=== PATIENT | male | born 1985 | race Caucasian/White ===

== ENCOUNTER 2022-12-23 04:10 | Emergency (ER) | payer BC, OTHER ==
[~2022-12-23] VITALS: Ht 177.8 cm; Wt 109.8 kg
[2022-12-23 04:20] VITALS: BP 147/80
--- NOTE | 2022-12-23 04:21 | NUR ---
To bed 11.
--- NOTE | 2022-12-23 04:25 | NUR ---
Patient BIB by family from home. C/O right foot pain x 2 days. Patient reported, heavy object dropped right foot on Wednesday, Hx Fx right foot.
--- NOTE | 2022-12-23 04:27 | NUR ---
Dr. Aguilar examining patient.
--- NOTE | 2022-12-23 04:31 | NUR ---
X-Ray at bedside.
--- NOTE | 2022-12-23 04:55 | NUR ---
Patient taken to CT scan via WC.
[2022-12-23] MEDS ORDERED: NAPR-54 PO (05:48)
[2022-12-23] MEDS ORDERED: CYCL-711 PO (05:48)
[2022-12-23 05:53] VITALS: BP 144/80
--- NOTE | 2022-12-23 05:53 | NUR ---
Patient discharged with v/s stable. Written and verbal after care instructions given and explained. Patient alert, oriented and verbalized understanding of instructions. Ambulatory with steady gait. All questions addressed prior to discharge. ID band removed. Patient advised to follow up with PMD. Rx of Flexeril and Naproxen given. Patient educated on indication of medication including possible reaction and side effects. Opportunity to ask questions provided and answered.
== END 2022-12-23 05:53 | disposition home or self-care (01) ==
LOC: MED 04:10
DX: S93.601A Unspecified sprain of right foot, initial encounter (principal); X58.XXXA Exposure to other specified factors, initial encounter; Y93.89 Activity, other specified; Y92.89 Other specified places as the place of occurrence of the external cause; Y99.8 Other external cause status
CPT/HCPCS: 73630; 73700; 99284; Q0092